=== PATIENT | female | born 1985 | race African-American/Black ===

== ENCOUNTER 2024-07-12 12:03 | Outpatient (REF) | payer SELFPAY ==
[2024-07-12 14:40] LABS: HCG Quantitative 79089 mIU/mL
[2024-07-13 14:24] LABS: H Pylori Breath Test Negative (Negative)
== END 2024-07-12 12:04 | disposition home or self-care (01) ==
LOC: HO.HHCL 12:03
PROVIDERS: Visit Provider Family Medicine
DX: Z32.01 Encounter for pregnancy test, result positive (principal); R10.84 Generalized abdominal pain
CPT/HCPCS: 36415; 83013; 84702